=== PATIENT | female | born 1985 | race Caucasian/White ===

== ENCOUNTER 2016-08-09 11:17 | Emergency (ER) | payer OTHER ==
[~2016-08-09 11:17] MED LIST: BACT800T5 PO; CEPH-460 PO
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
[2016-08-09 11:43] VITALS: BP 145/92; PULSE 82; RESP 20; TEMP 97.9; O2SAT 99
== END 2016-08-09 12:09 | disposition home or self-care (01) ==
LOC: NEPD 11:17
DX: Z02.89 Encounter for other administrative examinations (principal)
CPT/HCPCS: 99281

== ENCOUNTER 2016-12-09 03:18 | Inpatient (IN) | payer SELFPAY ==
[~2016-12-09] VITALS: Ht 170.2 cm; Wt 99.8 kg
[2016-12-09] VITALS (7 sets, daily range): BP systolic 93–125; BP diastolic 55–63; PULSE 87–96; RESP 16–18; TEMP 96.4–99.1; O2SAT 95–99
[2016-12-09] MEDS ORDERED: SODIUM CHLOR 0.9% 1000 ML INJ 1,000 ML IV ONE (04:26)
[2016-12-09] MEDS ORDERED: VANCOMYCIN INJ 1,000 MG in SODIUM CHLOR 0.9% 250 ML INJ 250 ML IV STA (04:26)
[2016-12-09] MEDS ORDERED: PIPERACIL-TAZO 4.5 GM PREMIX 100 ML IV STA (04:26)
--- NOTE | 2016-12-09 04:35 | PD ---
HPI Chief Complaint: Skin Problem Time Seen by Provider: 04:26 Travel History International Travel<30 days: No Contact w/Intl Traveler<30days: No Traveled to known affect area: No History of Present Illness HPI 31-year-old female patient presents to the ER today, states that her dog had gotten into a fight with her neighbors dog and she was been a few days ago in the left fifth digit, and since then has started having increased left hand swelling, streaking, pain, and states that she has been running subjective fevers. She is here for further evaluation. She states that the dog from her neighbor was vaccinated. She denies any IV drug use. Modifying Factors: None Associated Signs & Symptoms: Left hand injury, dog bite, swelling, redness, fevers Risk Factors: None PFSH Past Medical History ADHD: Yes Bipolar Disorder: Yes Anxiety: Yes Cancer: No Cardiovascular Problems: Yes Chest Pain: Yes (PALPITATIONS) Diminished Hearing: No Endocrine: Yes Gastrointestinal Disorders: Yes GERD: Yes Genitourinary: No Headaches: Yes Immune Disorder: No Implanted Vascular Access Dvce: Yes Neurologic: Yes Psychiatric: Yes Reproductive: No Respiratory: No Integumentary: Yes (WOUND MRSA ) Immunizations Current: Yes Migraines: Yes Thyroid Disease: Yes (DURING ) Menopausal: No : 1 Para: 0 : 1 Dilation and Curettage (D&C): Yes Past Surgical History Body Medical Devices: IUD Other Surgery: Yes (LAC REPAIR TO R FOOT ) Social History Alcohol Use: Yes Tobacco Use: Yes Allergies-Medications (Allergen,Severity, Reaction): Coded Allergies: latex (Unverified Allergy, Severe, Swelling, 12/09/16) adhesive (Unverified Allergy, Mild, RASH, 12/09/16) *MDRO Multi-Drug Resistant Organism (Verified Adverse Reaction, Unknown, 12/09/16) 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 Reported Meds & Prescriptions Reported Meds & Active Scripts Active Keflex (Cephalexin) 500 Mg Cap 500 Mg PO Q12H 7 Days Bactrim DS (Sulfamethoxazole-Trimethoprim) 800-160 Mg Tab 1 Tab PO BID 7 Days Review of Systems Except as stated in HPI: all other systems reviewed are Neg Physical Exam Narrative GENERAL: Well-developed young white female patient currently in mild distress. Awake and oriented 3. SKIN: Focused skin assessment warm/dry. HEAD: Atraumatic. Normocephalic. EYES: Pupils equal and round. No scleral icterus. No injection or drainage. ENT: No nasal bleeding or discharge. Mucous membranes pink and moist. NECK: Trachea midline. No JVD. CARDIOVASCULAR: Regular rate and rhythm. No murmur appreciated. RESPIRATORY: No accessory muscle use. Clear to auscultation. Breath sounds equal bilaterally. GASTROINTESTINAL: Abdomen soft, non-tender, nondistended. Hepatic and splenic margins not palpable. MUSCULOSKELETAL: No obvious deformities. No clubbing. No cyanosis. No edema. Left hand: There is notable small puncture wound to the MCP of the fifth digit. However, there is no significant erythema in this area. She has a lot of erythema in the dorsum and second through fourth digits with tenderness on palpation of the digits. Painful flexion and extension of the digits. Streaking of the forearm. NEUROLOGICAL: Awake and alert. No obvious cranial nerve deficits. Motor grossly within normal limits. Normal speech. PSYCHIATRIC: Appropriate mood and affect; insight and judgment normal. Data Data Last Documented VS Vital Signs Date Time Temp Pulse Resp B/P (MAP) Pulse Ox O2 Delivery O2 Flow Rate FiO2 12/09/16 04:34 99.1 94 18 125/63 (83) 95 Room Air Orders Orders Complete Blood Count With Diff (12/09/16 04:26) Comprehensive Metabolic Panel (12/09/16 04:26) Lactic Acid Sepsis Protocol (12/09/16 04:26) Blood Culture (12/09/16 04:26) Blood Glucose (12/09/16 04:26) Ecg Monitoring (12/09/16 04:26) Iv Access Insert/Monitor (12/09/16 04:26) Oximetry (12/09/16 04:26) Oxygen Administration (12/09/16 04:26) Piperacil-Tazo 4.5 Gm Premix (Zosyn 4.5 (12/09/16 04:26) Vancomycin Inj (Vancomycin Inj) (12/09/16 04:26) Sodium Chlor 0.9% 1000 Ml Inj (Ns 1000 M (12/09/16 04:26) Admit Order (Ed Use Only) (12/09/16 05:56) Labs Laboratory Tests Test 12/09/16 04:50 White Blood Count 19.8 TH/MM3 Red Blood Count 3.52 MIL/MM3 Hemoglobin 11.2 GM/DL Hematocrit 32.9 % Mean Corpuscular Volume 93.5 FL Mean Corpuscular Hemoglobin 31.8 PG Mean Corpuscular Hemoglobin Concent 34.0 % Red Cell Distribution Width 12.8 % Platelet Count 232 TH/MM3 Mean Platelet Volume 7.9 FL Neutrophils (%) (Auto) 78.6 % Lymphocytes (%) (Auto) 12.8 % Monocytes (%) (Auto) 8.1 % Eosinophils (%) (Auto) 0.2 % Basophils (%) (Auto) 0.3 % Neutrophils # (Auto) 15.6 TH/MM3 Lymphocytes # (Auto) 2.5 TH/MM3 Monocytes # (Auto) 1.6 TH/MM3 Eosinophils # (Auto) 0.0 TH/MM3 Basophils # (Auto) 0.1 TH/MM3 CBC Comment DIFF FINAL Differential Comment Blood Urea Nitrogen 7 MG/DL Creatinine 0.71 MG/DL Random Glucose 136 MG/DL Total Protein 6.9 GM/DL Albumin 3.4 GM/DL Calcium Level 8.6 MG/DL Alkaline Phosphatase 70 U/L Aspartate Amino Transf (AST/SGOT) 22 U/L Alanine Aminotransferase (ALT/SGPT) 25 U/L Total Bilirubin 0.9 MG/DL Sodium Level 133 MEQ/L Potassium Level 3.3 MEQ/L Chloride Level 99 MEQ/L Carbon Dioxide Level 26.0 MEQ/L Anion Gap 8 MEQ/L Estimat Glomerular Filtration Rate 97 ML/MIN Lactic Acid Level 1.8 mmol/L MDM Medical Decision Making Medical Screen Exam Complete: Yes Emergency Medical Condition: Yes Medical Record Reviewed: Yes Interpretation(s) Laboratory Tests Test 12/09/16 04:50 White Blood Count 19.8 TH/MM3 (4.0-11.0) Red Blood Count 3.52 MIL/MM3 (4.00-5.30) Hemoglobin 11.2 GM/DL (11.6-15.3) Hematocrit 32.9 % (35.0-46.0) Neutrophils (%) (Auto) 78.6 % (16.0-70.0) Monocytes (%) (Auto) 8.1 % (0.0-8.0) Neutrophils # (Auto) 15.6 TH/MM3 (1.8-7.7) Monocytes # (Auto) 1.6 TH/MM3 (0-0.9) Random Glucose 136 MG/DL (74-106) Sodium Level 133 MEQ/L (136-145) Potassium Level 3.3 MEQ/L (3.5-5.1) Differential Diagnosis Tenosynovitis versus cellulitis versus abscess versus sepsis Narrative Course Sepsis protocol initiated with IV fluids, antibiotics initiated IV after cultures were drawn. Case is discussed with Dr. Rivas for admission. Hand surgery was consulted on the case. Several attempts were made to call Dr. Montoya but we were not able to get contacts. Consult was placed for the chart. Diagnosis Primary Impression: Cellulitis of left hand Admitting Information Admitting Physician Requests: Admit Marcelina Rios MD Dec 09, 2016 04:35
[2016-12-09 05:16] LABS: AUTOMATED NEUTROPHIL # 15.6 TH/MM3 (1.8-7.7); BASOPHIL # 0.1 TH/MM3 (0-0.2); BASOPHIL % 0.3 % (0.0-2.0); EOSINOPHIL % 0.2 % (0.0-4.0); HEMATOCRIT 32.9 % (35.0-46.0); HEMO FLAGS DIFF FINAL; LYMPH % 12.8 % (9.0-44.0); LYMPHOCYTE # 2.5 TH/MM3 (1.0-4.8); MEAN CELL VOLUME 93.5 FL (80.0-100.0); MEAN CORPUSCULAR HEMOGLOBIN 31.8 PG (27.0-34.0); MONO % 8.1 % (0.0-8.0); NEUT % 78.6 % (16.0-70.0); PLATELET COUNT 232 TH/MM3 (150-450); RED BLOOD COUNT 3.52 MIL/MM3 (4.00-5.30); RED CELL DISTRIBUTION WIDTH 12.8 % (11.6-17.2); WHITE BLOOD COUNT 19.8 TH/MM3 (4.0-11.0)
[2016-12-09 05:17] LABS: ANION GAP 8 MEQ/L (5-15); AST (GOT) 22 U/L (15-37); BLOOD UREA NITROGEN 7 MG/DL (7-18); CHLORIDE 99 MEQ/L (98-107); GLOMERULAR FILTRATION RATE 97 ML/MIN (>89); POTASSIUM 3.3 MEQ/L (3.5-5.1); SODIUM (NA) 133 MEQ/L (136-145)
[2016-12-09 05:18] LABS: ALT (GPT) 25 U/L (10-53)
[2016-12-09 05:20] LABS: ALKALINE PHOSPHATASE 70 U/L (45-117); TOTAL BILIRUBIN ADULT 0.9 MG/DL (0.2-1.0)
[2016-12-09] MEDS ORDERED: BISACODYL 10 MG SUPP RECTAL PRN (06:00)
[2016-12-09] MEDS ORDERED: ACETAMINOPHEN 325 MG TAB PO PRN (06:00)
[2016-12-09] MEDS ORDERED: MAGNESIUM HYDROXIDE SUSP 30 ML CUP PO PRN (06:00)
[2016-12-09] MEDS ORDERED: Vancomycin Consult Pharmacy 1 EA OTHER SCH ×2 (06:00→09:00)
[2016-12-09] MEDS ORDERED: ONDANSETRON HCL 4 MG/2 ML VIAL IVP PRN (06:00)
[2016-12-09] MEDS ORDERED: SENNOSIDES 8.6 MG TAB PO PRN (06:00)
[2016-12-09] MEDS ORDERED: SODIUM CHLORIDE 0.9% FLUSH 10 ML FLUSH IV FLUSH PRN (06:00)
[2016-12-09] MEDS ORDERED: LACTULOSE SYRUP 20 GM/30 ML CUP PO PRN (06:00)
[2016-12-09] MEDS: SODIUM CHLOR 0.9% 1000 ML INJ 1,000 ML IV SCH ×3 (06:32→16:55)
--- NOTE | 2016-12-09 08:26 | HHI.HP ---
HPI Service [facility] Primary Care Physician No Primary Care Physician Admission Diagnosis left hand cellulitis/sepsis Diagnoses: Chief Complaint: Left Hand edema and pain Travel History International Travel<30 Days: No Contact w/Intl Traveler <30 Da: No Traveled to Known Affected Are: No History of Present Illness 31-year-old female patient presents to the ER today, states that her dog had gotten into a fight with her neighbors dog and she was been a few days ago in the left fifth digit, and since then has started having increased left hand swelling, streaking, pain, and states that she has been running subjective fevers. She is here for further evaluation. She states that the dog from her neighbor was vaccinated. She denies any IV drug use. Seen in ER stable sleeping comfortable. Poor historian. Review of Systems Constitutional: DENIES: Fever, Chills, Change in appetite Endocrine: DENIES: Heat/cold intolerance Eyes: DENIES: Blurred vision, Eye pain Except as stated in HPI: all other systems reviewed are Neg Past Family Social History Past Medical History ADHD Bipolar Disorder Anxiety disorder GERD MRSA history of Past Surgical History Denies any past Surgical History Reported Medications Reported Meds & Active Scripts Active Keflex (Cephalexin) 500 Mg Cap 500 Mg PO Q12H 7 Days Bactrim DS (Sulfamethoxazole-Trimethoprim) 800-160 Mg Tab 1 Tab PO BID 7 Days Allergies: Coded Allergies: latex (Unverified Allergy, Severe, Swelling, 12/09/16) adhesive (Unverified Allergy, Mild, RASH, 12/09/16) *MDRO Multi-Drug Resistant Organism (Verified Adverse Reaction, Unknown, 12/09/16) 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 Active Ordered Medications Current Medications Medications (Trade) Dose Ordered Sig/Isak Route Start Time Stop Time Status Last Admin Pharmacy Profile Note 0 ml @ 0 mls/hr UNSCH OTHER 12/09/16 06:00 Ampicillin Sodium/ Sulbactam Sodium 3 gm/Sodium Chloride 100 ml @ 200 mls/hr Q6H IV 12/09/16 10:00 Sodium Chloride 1,000 ml @ 100 mls/hr Q10H IV 12/09/16 06:00 12/09/16 06:32 (NS Flush) 2 ml UNSCH PRN IV FLUSH 12/09/16 06:00 (NS Flush) 2 ml BID IV FLUSH 12/09/16 09:00 (Zofran Inj) 4 mg Q6H PRN IVP 12/09/16 06:00 (Tylenol) 650 mg Q6H PRN PO 12/09/16 06:00 (Roxicodone) 10 mg Q4H PRN PO 12/09/16 06:00 12/09/16 06:33 (Roxicodone) 5 mg Q4H PRN PO 12/09/16 06:00 (Emelina-Colace) 1 tab BID PO 12/09/16 09:00 (Milk Of Magnesia Liq) 30 ml Q12H PRN PO 12/09/16 06:00 (Senokot) 17.2 mg Q12H PRN PO 12/09/16 06:00 (Dulcolax Supp) 10 mg DAILY PRN RECTAL 12/09/16 06:00 (Lactulose Liq) 30 ml DAILY PRN PO 12/09/16 06:00 Family History Denies Social History Tobacco dependence Alcohol abuse Physical Exam Vital Signs Vital Signs Date Time Temp Pulse Resp B/P (MAP) Pulse Ox O2 Delivery O2 Flow Rate FiO2 12/09/16 06:41 87 18 111/56 (74) 99 Room Air 12/09/16 04:34 99.1 94 18 125/63 (83) 95 Room Air 12/09/16 04:34 95 Room Air 12/09/16 04:34 95 Room Air Physical Exam GENERAL: Well-developed, in no acute distress. SKIN: Focused skin assessment warm/dry. HEAD: Atraumatic. Normocephalic. EYES: Pupils equal and round. No scleral icterus. No injection or drainage. ENT: No nasal bleeding or discharge. Mucous membranes pink and moist. NECK: Trachea midline. No JVD. CARDIOVASCULAR: Regular rate and rhythm. No murmur appreciated. RESPIRATORY: No accessory muscle use. Clear to auscultation. Breath sounds equal bilaterally. GASTROINTESTINAL: Abdomen soft, non-tender, nondistended. Hepatic and splenic margins not palpable. MUSCULOSKELETAL: Left hand: There is notable small puncture wound to the MCP of the fifth digit. However, there is no significant erythema in this area. She has a lot of erythema in the dorsum and second through fourth digits with tenderness on palpation of the digits. Painful flexion and extension of the digits. Streaking of the forearm. NEUROLOGICAL: Awake and alert. No obvious cranial nerve deficits. Motor grossly within normal limits. Normal speech. PSYCHIATRIC: Appropriate mood and affect; insight and judgment normal. Laboratory Laboratory Tests Test 12/09/16 04:50 White Blood Count 19.8 Red Blood Count 3.52 Hemoglobin 11.2 Hematocrit 32.9 Mean Corpuscular Volume 93.5 Mean Corpuscular Hemoglobin 31.8 Mean Corpuscular Hemoglobin Concent 34.0 Red Cell Distribution Width 12.8 Platelet Count 232 Mean Platelet Volume 7.9 Neutrophils (%) (Auto) 78.6 Lymphocytes (%) (Auto) 12.8 Monocytes (%) (Auto) 8.1 Eosinophils (%) (Auto) 0.2 Basophils (%) (Auto) 0.3 Neutrophils # (Auto) 15.6 Lymphocytes # (Auto) 2.5 Monocytes # (Auto) 1.6 Eosinophils # (Auto) 0.0 Basophils # (Auto) 0.1 CBC Comment DIFF FINAL Differential Comment Blood Urea Nitrogen 7 Creatinine 0.71 Random Glucose 136 Total Protein 6.9 Albumin 3.4 Calcium Level 8.6 Alkaline Phosphatase 70 Aspartate Amino Transf (AST/SGOT) 22 Alanine Aminotransferase (ALT/SGPT) 25 Total Bilirubin 0.9 Sodium Level 133 Potassium Level 3.3 Chloride Level 99 Carbon Dioxide Level 26.0 Anion Gap 8 Estimat Glomerular Filtration Rate 97 Lactic Acid Level 1.8 Date/Time Source Procedure Growth Status 12/09/16 04:50 Blood Peripheral Aerobic Blood Culture Pending Received 12/09/16 04:50 Blood Peripheral Anaerobic Blood Culture Pending Received Result Diagram: 12/09/16 0450 12/09/16 0450 Imaging No Imaging studies performed. Caprini VTE Risk Assessment Caprini VTE Risk Assessment: No/Low Risk (score <= 1) Caprini Risk Assessment Model Point Value = 1 Point Value = 2 Point Value = 3 Point Value = 5 Age 41-60 Minor surgery BMI > 25 kg/m2 Swollen legs Varicose veins or History of unexplained or recurrent spontaneous Oral contraceptives or hormone replacement Sepsis (< 1 month) Serious lung disease, including pneumonia (< 1 month) Abnormal pulmonary function Acute myocardial infarction Congestive heart failure (< 1 month) History of inflammatory bowel disease Medical patient at bed rest Age 61-74 Arthroscopic surgery Major open surgery (> 45 min) Laparoscopic surgery (> 45 min) Malignancy Confined to bed (> 72 hours) Immobilizing plaster cast Central venous access Age >= 75 History of VTE Family history of VTE Factor V Leiden Prothrombin [id number] Lupus anticoagulant Anticardiolipin antibodies Elevated serum homocysteine Heparin-induced thrombocytopenia Other congenital or acquired thrombophilia Stroke (< 1 month) Elective arthroplasty Hip, pelvis, or leg fracture Acute spinal cord injury (< 1 month) Prophylaxis Regimen Total Risk Factor Score Risk Level Prophylaxis Regimen 0-1 Low Early ambulation 2 Moderate Order ONE of the following: *Sequential Compression Device (SCD) *Heparin 5000 units SQ BID 3-4 Higher Order ONE of the following medications: *Heparin 5000 units SQ TID *Enoxaparin/Lovenox 40 mg SQ daily (WT < 150 kg, CrCl > 30 mL/min) *Enoxaparin/Lovenox 30 mg SQ daily (WT < 150 kg, CrCl > 10-29 mL/min) *Enoxaparin/Lovenox 30 mg SQ BID (WT < 150 kg, CrCl > 30 mL/min) AND/OR *Sequential Compression Device (SCD) 5 or more Highest Order ONE of the following medications: *Heparin 5000 units SQ TID (Preferred with Epidurals) *Enoxaparin/Lovenox 40 mg SQ daily (WT < 150 kg, CrCl > 30 mL/min) *Enoxaparin/Lovenox 30 mg SQ daily (WT < 150 kg, CrCl > 10-29 mL/min) *Enoxaparin/Lovenox 30 mg SQ BID (WT < 150 kg, CrCl > 30 mL/min) AND *Sequential Compression Device (SCD) Assessment and Plan Assessment and Plan 1. Sepsis the patient has Tachycardia and Leukocytosis and known area of infection has Left Hand Cellulitis Probable secondary to Dog bite, she denies Drug abuse, asked for Drug screen and follow, continue initially given in ER Vancomycin and Zosyn even is possible to treat the patient with Ampicillin and Sulbactam she has history of MRSA I prefer to continue Vancomycin and Zosyn and follow closely for blood cultures and Probable Wound cultures after procedure performed. She may have an abscess on the Left Hand. elevation of the hand recommended. The patient states she is up to date in her Vaccination last time was last year. 2. Tobacco dependence states she smokes only three cigarettes daily, denies Alcohol abuse. strongly recommended to stop smoking 3. Depression/Bipolar Disorder/Anxiety disorder on no medication. DVT prophylaxis with SCDs for probable procedure later today or in am tomorrow. Code Status Full Code. Discussed Condition With Patient in the room. Physician Certification 2 Midnight Certification Type: Admission for Inpatient Services Order for Inpatient Services The services are ordered in accordance with Medicare regulations or non- Medicare payer requirements, as applicable. In the case of services not specified as inpatient-only, they are appropriately provided as inpatient services in accordance with the 2-midnight benchmark. Estimated LOS (days): 3 days is the estimated time the patient will need to remain in the hospital, assuming treatment plan goals are met and no additional complications. Post-Hospital Plan: Home Lito Levi MD Dec 09, 2016 8:26 am
[2016-12-09] MEDS: SODIUM CHLORIDE 0.9% FLUSH 10 ML FLUSH IV FLUSH SCH ×2 (09:00→21:00)
[2016-12-09] MEDS: DOCUSATE SODIUM 50 MG/SENNA 8.6 MG TAB PO SCH ×2 (09:00→21:00)
[2016-12-09] MEDS ORDERED: AMPICILLIN-SULBACTAM INJ 3 GM in SODIUM CHLORIDE 0.9% INJ 100 ML IV SCH (10:00)
[2016-12-09] MEDS: PIPERACIL-TAZO 3.375 GM PREMIX 50 ML IV SCH ×3 (11:08→23:04)
--- NOTE | 2016-12-09 14:55 | MB ---
cc: PAUL NY III, M.D. DATE OF CONSULTATION: 12/09/2016. HISTORY OF PRESENT ILLNESS: The patient is a 31-year-old right hand-dominant female who states she was bitten by a small dog four or five days ago in the left fifth finger. She started having increased redness, pain, swelling in the fingers and hands and then was admitted. She states the dog that did bite her was vaccinated. She denies using any IV drugs for the last four or five years. PAST MEDICAL HISTORY: 1. Bipolar disorder. 2. ADHD. PAST SURGICAL HISTORY: Laceration to her foot was repaired. MEDICATIONS AT HOME: Adderall. ALLERGIES: 1. LATEX. 2. ADHESIVES. MEDICATIONS HERE IN THE HOSPITAL: 1. Vancomycin. 2. Zosyn. 3. Oxycodone. REVIEW OF SYSTEMS: The patient is not complaining of any headache, blurred or double vision. She is not complaining of any coughing, wheezing or shortness of breath. She is not complaining of any chest pain or palpitations. She is not complaining of any nausea or vomiting or abdominal pain. She is not complaining of any burning, frequency or urgency with urination. She is not complaining of any spine, neck or back pain. She is not complaining of any skin lesions, rashes or eruptions except for some old bruises on her legs. She states they have been there for at least a year and have left scars. She is not complaining of any anxiety, depression or suicidal ideations. She is not complaining of any night sweats, fevers or chills. FAMILY HISTORY: Not pertinent or contributory. LABORATORY FINDINGS: White blood cell count of 19.8 thousand, hemoglobin 11.2 gm/dl, platelet count is 232,000. BUN and creatinine are 7 and 0.71. PHYSICAL EXAMINATION: GENERAL: She is well-developed, well-nourished and in no apparent distress lying comfortably in bed. She is awake, alert and oriented x3. She is very pleasant. She moves around normally but she is guarding her left hand. VITAL SIGNS: Temperature is 96.4, blood pressure 115/59, heart rate 93, respiratory rate is 16. EXAMINATION OF THE LEFT HAND: Examination of the left hand reveals erythema on the dorsal aspect of the hand and fourth and fifth fingers. All musculotendinous units are intact and she easily moves all fingers and all the joints in her fingers and hand without undue discomfort. Capillary refill is less 2 seconds in all fingertips. There are no open wounds. There are no fluid collections. There is no fluctuance. There is no proximal streaking. There is very mild edema. There is no induration. The hand is tender to palpation in the areas of the erythema. Palpable radial pulse. No palpable epitrochlear adenopathy. There is no evidence of compartment syndrome at all. There is no subcutaneous emphysema. IMPRESSION: Dog bite left hand with cellulitis. PLAN: 1. Continued IV antibiotics. 2. I have ordered IV pole sling and strict elevation of the left hand. 3. There is nothing surgical needed to address this at this time. 4. Hopefully this will resolve nonsurgically. I will follow the patient with you. MD CHANTEL Madrid III/[facility] /2:14 PM /2:40 PM
[2016-12-09] MEDS: VANCOMYCIN INJ 1,250 MG in SODIUM CHLOR 0.9% 250 ML INJ 250 ML IV SCH (17:07)
[2016-12-10] VITALS (7 sets, daily range): BP systolic 100–120; BP diastolic 55–72; PULSE 71–87; RESP 16–20; TEMP 97.4–98.3; O2SAT 96–99
[2016-12-10] MEDS: SODIUM CHLOR 0.9% 1000 ML INJ 1,000 ML IV SCH ×3 (02:54→22:54)
[2016-12-10] MEDS: PIPERACIL-TAZO 3.375 GM PREMIX 50 ML IV SCH ×4 (04:56→22:54)
[2016-12-10] MEDS: VANCOMYCIN INJ 1,250 MG in SODIUM CHLOR 0.9% 250 ML INJ 250 ML IV SCH ×2 (04:56→17:55)
--- NOTE | 2016-12-10 08:06 | HHI.PR ---
Subjective Remarks 31-year-old female patient presents to the ER today, states that her dog had gotten into a fight with her neighbors dog and she was been a few days ago in the left fifth digit, and since then has started having increased left hand swelling, streaking, pain, and states that she has been running subjective fevers. She is here for further evaluation. She states that the dog from her neighbor was vaccinated. She denies any IV drug use. 12/10: Seen by Hand surgery recommended to continue her antibiotics, also not recommended any procedure the patient states her antibiotics are not working and refused to get them this morning, also asked for PICC line IR was consulted to evaluate her Right Jugular peripheral line, will get ID specialist consult. recommended to get Urine for Drug screen and also as per nurse recommendations wants STD evaluation. No nausea, vomit or diarrhea. Objective Vital Signs Date Time Temp Pulse Resp B/P (MAP) Pulse Ox O2 Delivery O2 Flow Rate FiO2 12/10/16 04:00 97.4 86 17 100/57 (71) 99 12/10/16 00:00 97.4 81 17 120/62 (81) 98 12/09/16 20:00 98.0 96 17 109/55 (73) 98 12/09/16 19:59 96 12/09/16 16:00 96.8 92 16 93/55 (68) 98 12/09/16 12:00 96.4 93 16 115/59 (77) 98 12/09/16 09:00 I/O 12/09/16 12/09/16 12/09/16 12/10/16 12/10/16 12/10/16 07:00 15:00 23:00 07:00 15:00 23:00 Intake Total 2700 ml 50 ml 2050 ml 1290 ml Balance 2700 ml 50 ml 2050 ml 1290 ml Intake Oral 1000 ml 240 ml IV Total 2700 ml 50 ml 1050 ml 1050 ml # Voids 2 2 # Bowel Movements 0 Result Diagram: 12/09/16 0450 12/09/16 0450 Imaging No new Imaging studies. Procedures None Other Results Laboratory Tests Test 12/09/16 04:50 White Blood Count 19.8 TH/MM3 Red Blood Count 3.52 MIL/MM3 Hemoglobin 11.2 GM/DL Hematocrit 32.9 % Mean Corpuscular Volume 93.5 FL Mean Corpuscular Hemoglobin 31.8 PG Mean Corpuscular Hemoglobin Concent 34.0 % Red Cell Distribution Width 12.8 % Platelet Count 232 TH/MM3 Mean Platelet Volume 7.9 FL Neutrophils (%) (Auto) 78.6 % Lymphocytes (%) (Auto) 12.8 % Monocytes (%) (Auto) 8.1 % Eosinophils (%) (Auto) 0.2 % Basophils (%) (Auto) 0.3 % Neutrophils # (Auto) 15.6 TH/MM3 Lymphocytes # (Auto) 2.5 TH/MM3 Monocytes # (Auto) 1.6 TH/MM3 Eosinophils # (Auto) 0.0 TH/MM3 Basophils # (Auto) 0.1 TH/MM3 CBC Comment DIFF FINAL Differential Comment Blood Urea Nitrogen 7 MG/DL Creatinine 0.71 MG/DL Random Glucose 136 MG/DL Total Protein 6.9 GM/DL Albumin 3.4 GM/DL Calcium Level 8.6 MG/DL Alkaline Phosphatase 70 U/L Aspartate Amino Transf (AST/SGOT) 22 U/L Alanine Aminotransferase (ALT/SGPT) 25 U/L Total Bilirubin 0.9 MG/DL Sodium Level 133 MEQ/L Potassium Level 3.3 MEQ/L Chloride Level 99 MEQ/L Carbon Dioxide Level 26.0 MEQ/L Anion Gap 8 MEQ/L Estimat Glomerular Filtration Rate 97 ML/MIN Lactic Acid Level 1.8 mmol/L Objective Remarks GENERAL: Well-developed, in no acute distress. SKIN: Focused skin assessment warm/dry. HEAD: Atraumatic. Normocephalic. EYES: Pupils equal and round. No scleral icterus. No injection or drainage. ENT: No nasal bleeding or discharge. Mucous membranes pink and moist. NECK: Trachea midline. No JVD. CARDIOVASCULAR: Regular rate and rhythm. No murmur appreciated. RESPIRATORY: No accessory muscle use. Clear to auscultation. Breath sounds equal bilaterally. GASTROINTESTINAL: Abdomen soft, non-tender, nondistended. Hepatic and splenic margins not palpable. MUSCULOSKELETAL: Left hand: There is notable small puncture wound to the MCP of the fifth digit. However, there is no significant erythema in this area. She has a lot of erythema in the dorsum and second through fourth digits with tenderness on palpation of the digits. Painful flexion and extension of the digits. Streaking of the forearm. NEUROLOGICAL: Awake and alert. No obvious cranial nerve deficits. Motor grossly within normal limits. Normal speech. PSYCHIATRIC: Appropriate mood and affect; insight and judgment normal. Medications and IVs Current Medications Medications (Trade) Dose Ordered Sig/Isak Route Start Time Stop Time Status Last Admin Sodium Chloride 1,000 ml @ 150 mls/hr Q6H40M IV 12/09/16 06:00 12/09/16 16:55 (NS Flush) 2 ml UNSCH PRN IV FLUSH 12/09/16 06:00 (NS Flush) 2 ml BID IV FLUSH 12/09/16 09:00 (Zofran Inj) 4 mg Q6H PRN IVP 12/09/16 06:00 (Tylenol) 650 mg Q6H PRN PO 12/09/16 06:00 (Roxicodone) 10 mg Q4H PRN PO 12/09/16 06:00 12/09/16 20:48 (Roxicodone) 5 mg Q4H PRN PO 12/09/16 06:00 (Emelina-Colace) 1 tab BID PO 12/09/16 09:00 (Milk Of Magnesia Liq) 30 ml Q12H PRN PO 12/09/16 06:00 (Senokot) 17.2 mg Q12H PRN PO 12/09/16 06:00 (Dulcolax Supp) 10 mg DAILY PRN RECTAL 12/09/16 06:00 (Lactulose Liq) 30 ml DAILY PRN PO 12/09/16 06:00 Piperacillin Sod/ Tazobactam Sod 50 ml @ 100 mls/hr Q6H IV 12/09/16 11:00 12/09/16 23:04 Pharmacy Profile Note 0 ml @ 0 mls/hr UNSCH OTHER 12/09/16 09:00 Vancomycin HCl 1250 mg/Sodium Chloride 262.5 ml @ 250 mls/hr Q12H IV 12/09/16 17:00 12/09/16 17:07 Miscellaneous Information SPECIFIC LAB TO BE DRAWN:VANCO TROUGH DATE TO... ONCE ONCE .XX 12/10/16 16:45 12/10/16 16:46 A/P Assessment and Plan 1. Sepsis the patient has Tachycardia and Leukocytosis and known area of infection has Left Hand Cellulitis Probable secondary to Dog bite, she denies Drug abuse, asked for Drug screen and follow, continue initially given in ER Vancomycin and Zosyn even is possible to treat the patient with Ampicillin and Sulbactam she has history of MRSA I prefer to continue Vancomycin and Zosyn and follow closely for blood cultures and Probable Wound cultures after procedure performed. She may have an abscess on the Left Hand. elevation of the hand recommended. as per Hand oral surgery assistant continue antibiotics, and no surgical procedure now. The patient states she is up to date in her Vaccination last time was last year. 2. Tobacco dependence states she smokes only three cigarettes daily, denies Alcohol abuse. strongly recommended to stop smoking 3. Depression/Bipolar Disorder/Anxiety disorder on no medication. DVT prophylaxis with Heparin Code Status Full Code. Discussed Condition With patient and nurse in the room present Miss Moon, all questions answered to the best of my abilities. consult ID specialist. Discharge Planning Once cleared by specialists. Lito Levi MD Dec 10, 2016 08:06
[2016-12-10] MEDS: DOCUSATE SODIUM 50 MG/SENNA 8.6 MG TAB PO SCH ×2 (09:00→20:53)
[2016-12-10] MEDS: SODIUM CHLORIDE 0.9% FLUSH 10 ML FLUSH IV FLUSH SCH ×2 (11:17→20:53)
--- NOTE | 2016-12-10 13:19 | HHI.PR ---
Subjective Remarks The patient has her left hand down and not elevated She states she can feel the IV infusing into her neck and not into the vein Objective Vital Signs Date Time Temp Pulse Resp B/P (MAP) Pulse Ox O2 Delivery O2 Flow Rate FiO2 12/10/16 12:00 97.9 83 16 111/55 (73) 99 12/10/16 08:00 98.3 78 18 110/64 (79) 96 12/10/16 04:00 97.4 86 17 100/57 (71) 99 12/10/16 00:00 97.4 81 17 120/62 (81) 98 12/09/16 20:00 98.0 96 17 109/55 (73) 98 12/09/16 19:59 96 12/09/16 16:00 96.8 92 16 93/55 (68) 98 I/O 12/09/16 12/09/16 12/09/16 12/10/16 12/10/16 12/10/16 07:00 15:00 23:00 07:00 15:00 23:00 Intake Total 2700 ml 50 ml 2050 ml 1290 ml Balance 2700 ml 50 ml 2050 ml 1290 ml Intake Oral 1000 ml 240 ml IV Total 2700 ml 50 ml 1050 ml 1050 ml # Voids 2 2 # Bowel Movements 0 Result Diagram: 12/09/1644912/09/16 0450 Procedures None Objective Remarks Examination left hand wrist and forearm reveals slightly decreased erythema. The hand is still swollen no induration no fluctuance no fluid collections neurovascularly intact throughout she has full active range of motion the hand performed in every other surface are soft She is awake alert and oriented 3 She is pleasant She's lying comfortably in bed Assessment and Plan Problem List: (1) Cellulitis ICD Codes: L03.90 - Cellulitis, unspecified Status: Acute Plan: I reset up and readjusted her IV pole sling and had a re-elevate her arm while I was in the room today I also went and ordered a PICC line placement for the right upper extremity and she needs the antibiotics and they are apparently on hold She and I discussed other treatments, at this time surgical treatment is not indicated Misha Leon III, MD Dec 10, 2016 13:19
[2016-12-10] MEDS: ENOXAPARIN SODIUM 40 MG/0.4 ML SYRINGE SQ SCH (14:33)
--- NOTE | 2016-12-10 16:34 | HHI.PR ---
Addendum to Inpatient Note Additional Information pt seen around 1500 full note to follow Valeria Sim RN, MD Dec 10, 2016 16:34
--- NOTE | 2016-12-10 23:15 | PD.ID.CON ---
History of Present Illness Service ID Consult Requested By Dr Leonard Reason for Consult L hand cellulitis Primary Care Physician No Primary Care Physician Diagnoses: History of Present Illness 31 yo R handed female, past IVDU - adamatly denies any ongoing IV drugs sp dog bit to her L small finger 1-2 weeks ago which healed and she did nt seek any med attention Dog's owned by her neihgbcuate and per pt is vaccinated and OK Pt developped progressive swelling and redness of her L hand over the last 4 days No fever, but significant leukocytsis (19K) noted She thinks her pain and swelling are getting worse She is also concerned over her periferal IV Review of Systems Except as stated in HPI: all other systems reviewed are Neg Past Family Social History Allergies: Coded Allergies: latex (Unverified Allergy, Severe, Swelling, 12/09/16) adhesive (Unverified Allergy, Mild, RASH, 12/09/16) Past Medical History ADHD Bipolar Disorder Anxiety disorder GERD MRSA skin infx Past Surgical History Denies any past surgeries Active Ordered Medications Medications where reviewed in EMR Antibiotics Include: bibi smart Family History reviewed non contributory Social History + Tobacco. social ETOH. past IVDU 5 yrs ago Physical Exam Vital Signs Vital Signs Date Time Temp Pulse Resp B/P (MAP) Pulse Ox O2 Delivery O2 Flow Rate FiO2 12/10/16 22:30 20 12/10/16 20:00 97.8 80 20 115/56 (75) 98 12/10/16 16:00 98.0 71 16 111/72 (85) 98 12/10/16 12:00 97.9 83 16 111/55 (73) 99 12/10/16 08:00 98.3 78 18 110/64 (79) 96 12/10/16 04:00 97.4 86 17 100/57 (71) 99 12/10/16 00:00 97.4 81 17 120/62 (81) 98 Physical Exam CONSTITUTIONAL/GENERAL: This is an adequately nourished patient, in no apparent distress. TUBES/LINES/DRAINS: SKIN: No jaundice, rashes, or lesions. Skin temperature appropriate. Not diaphoretic. no needle tracks HEAD: Atraumatic. Normocephalic. EYES: Pupils equal and round and reactive. Extraocular motions intact. No scleral icterus. No injection or drainage. Fundi not examined. ENT: Hearing grossly normal. Nose without bleeding or purulent drainage. Throat without visible erythema, exudates, masses, or lesions. NECK: Trachea midline. Supple, nontender. CARDIOVASCULAR: Regular rate and rhythm without murmurs, gallops, or rubs. No JVD. Peripheral pulses symmetric. RESPIRATORY/CHEST: Symmetric, unlabored respirations. Clear to auscultation. Breath sounds equal bilaterally. No wheezes, rales, or rhonchi. GASTROINTESTINAL: Abdomen soft, non-tender, nondistended. No hepato-splenomegaly , or palpable masses. No guarding. Bowel sounds present. MUSCULOSKELETAL: Extremities without clubbing, cyanosis, or edema BLE and RUE. No joint tenderness or effusion noted. No calf tenderness. No mottling or clubbing. L hand with edema , erythema spreading to the wrist No crepitus or fluctuance no ascending lymphaginitis or axillae lymphadenopathy LYMPHATICS: No palpable cervical or supraclavicular adenopathy. NEUROLOGICAL: Awake and alert. Motor and sensory grossly within normal limits. Follows commands. Cognitively sharp. Moves all extremities. PSYCHIATRIC: No obvious anxiety/depression. no apparent hallucinations or other psychotic thought process. Laboratory Laboratory Tests Test 12/10/16 15:00 Urine Opiates Screen NEG Urine Barbiturates Screen NEG Urine Amphetamines Screen POS Urine Benzodiazepines Screen NEG Urine Cocaine Screen NEG Urine Cannabinoids Screen NEG Date/Time Source Procedure Growth Status 12/09/16 04:50 Blood Peripheral Aerobic Blood Culture - Preliminary NO GROWTH IN 1 DAY Resulted 12/09/16 04:50 Blood Peripheral Anaerobic Blood Culture - Preliminary NO GROWTH IN 1 DAY Resulted Result Diagram: 12/09/16 0450 12/09/16449 Assessment and Plan Assessment and Plan L hand skin and soft tissue infection following a dog bite H/o IVDU denies current use cont broad spectrum abx (zosyn, vanco) fu clinically If no significant improveent by tomorow will get MRI to exclude abscess Valeria Bartlett MD Dec 10, 2016 23:15
[2016-12-11] VITALS (8 sets, daily range): BP systolic 101–118; BP diastolic 52–81; PULSE 66–88; RESP 16–20; TEMP 96.7–97.5; O2SAT 95–98
[2016-12-11] MEDS: PIPERACIL-TAZO 3.375 GM PREMIX 50 ML IV SCH ×4 (04:54→23:40)
[2016-12-11] MEDS: SODIUM CHLOR 0.9% 1000 ML INJ 1,000 ML IV SCH ×3 (05:37→13:22)
[2016-12-11] MEDS: VANCOMYCIN INJ 1,250 MG in SODIUM CHLOR 0.9% 250 ML INJ 250 ML IV SCH ×2 (05:37→15:52)
--- NOTE | 2016-12-11 08:27 | HHI.PR ---
Subjective Remarks 31-year-old female patient presents to the ER today, states that her dog had gotten into a fight with her neighbors dog and she was been a few days ago in the left fifth digit, and since then has started having increased left hand swelling, streaking, pain, and states that she has been running subjective fevers. She is here for further evaluation. She states that the dog from her neighbor was vaccinated. She denies any IV drug use. 12/10: Seen by Hand surgery recommended to continue her antibiotics, also not recommended any procedure the patient states her antibiotics are not working and refused to get them this morning, also asked for PICC line IR was consulted to evaluate her Right Jugular peripheral line, will get ID specialist consult. recommended to get Urine for Drug screen and also as per nurse recommendations wants STD evaluation. 12/11: Seen in her bedroom in the presence at all times while I was in the room of nurse Miss Moon, patient stable improving Erythema and edema, ID specialist assistance and Hand operating room specialist Assistance Highly appreciated. No nausea, vomit or diarrhea, better mood today. Objective Vital Signs Date Time Temp Pulse Resp B/P (MAP) Pulse Ox O2 Delivery O2 Flow Rate FiO2 12/11/16 08:00 97.0 74 18 102/62 (75) 98 12/11/16 05:54 17 12/11/16 04:00 96.7 74 18 102/57 (72) 97 12/11/16 00:00 96.8 66 18 104/58 (73) 97 12/10/16 21:00 87 12/10/16 20:00 97.8 80 20 115/56 (75) 98 12/10/16 16:00 98.0 71 16 111/72 (85) 98 12/10/16 12:00 97.9 83 16 111/55 (73) 99 I/O 12/10/16 12/10/16 12/10/16 12/11/16 12/11/16 12/11/16 07:00 15:00 23:00 07:00 15:00 23:00 Intake Total 1290 ml 50 ml 1732.5 ml 1842.5 ml Balance 1290 ml 50 ml 1732.5 ml 1842.5 ml Intake Oral 240 ml 420 ml 480 ml IV Total 1050 ml 50 ml 1312.5 ml 1362.5 ml # Voids 2 3 2 # Bowel Movements 0 0 Result Diagram: 12/09/16 0450 12/09/16 0450 Imaging No Imaging studies performed. Procedures None Other Results Laboratory Tests Test 12/09/16 04:50 12/10/16 15:00 White Blood Count 19.8 TH/MM3 Red Blood Count 3.52 MIL/MM3 Hemoglobin 11.2 GM/DL Hematocrit 32.9 % Mean Corpuscular Volume 93.5 FL Mean Corpuscular Hemoglobin 31.8 PG Mean Corpuscular Hemoglobin Concent 34.0 % Red Cell Distribution Width 12.8 % Platelet Count 232 TH/MM3 Mean Platelet Volume 7.9 FL Neutrophils (%) (Auto) 78.6 % Lymphocytes (%) (Auto) 12.8 % Monocytes (%) (Auto) 8.1 % Eosinophils (%) (Auto) 0.2 % Basophils (%) (Auto) 0.3 % Neutrophils # (Auto) 15.6 TH/MM3 Lymphocytes # (Auto) 2.5 TH/MM3 Monocytes # (Auto) 1.6 TH/MM3 Eosinophils # (Auto) 0.0 TH/MM3 Basophils # (Auto) 0.1 TH/MM3 CBC Comment DIFF FINAL Differential Comment Blood Urea Nitrogen 7 MG/DL Creatinine 0.71 MG/DL Random Glucose 136 MG/DL Total Protein 6.9 GM/DL Albumin 3.4 GM/DL Calcium Level 8.6 MG/DL Alkaline Phosphatase 70 U/L Aspartate Amino Transf (AST/SGOT) 22 U/L Alanine Aminotransferase (ALT/SGPT) 25 U/L Total Bilirubin 0.9 MG/DL Sodium Level 133 MEQ/L Potassium Level 3.3 MEQ/L Chloride Level 99 MEQ/L Carbon Dioxide Level 26.0 MEQ/L Anion Gap 8 MEQ/L Estimat Glomerular Filtration Rate 97 ML/MIN Lactic Acid Level 1.8 mmol/L Urine Opiates Screen NEG Urine Barbiturates Screen NEG Urine Amphetamines Screen POS Urine Benzodiazepines Screen NEG Urine Cocaine Screen NEG Urine Cannabinoids Screen NEG Objective Remarks GENERAL: Well-developed, in no acute distress. SKIN: Focused skin assessment warm/dry. HEAD: Atraumatic. Normocephalic. EYES: Pupils equal and round. No scleral icterus. No injection or drainage. ENT: No nasal bleeding or discharge. Mucous membranes pink and moist. NECK: Trachea midline. No JVD. CARDIOVASCULAR: Regular rate and rhythm. No murmur appreciated. RESPIRATORY: No accessory muscle use. Clear to auscultation. Breath sounds equal bilaterally. GASTROINTESTINAL: Abdomen soft, non-tender, nondistended. Hepatic and splenic margins not palpable. MUSCULOSKELETAL: Left hand: There is notable small puncture wound to the MCP of the fifth digit. However, there is no significant erythema in this area. She has a lot of erythema in the dorsum and second through fourth digits with tenderness on palpation of the digits. Painful flexion and extension of the digits. Streaking of the forearm. NEUROLOGICAL: Awake and alert. No obvious cranial nerve deficits. Motor grossly within normal limits. Normal speech. PSYCHIATRIC: Appropriate mood and affect; insight and judgment normal. Medications and IVs Current Medications Medications (Trade) Dose Ordered Sig/Isak Route Start Time Stop Time Status Last Admin Sodium Chloride 1,000 ml @ 150 mls/hr Q6H40M IV 12/09/16 06:00 12/11/16 05:37 (NS Flush) 2 ml UNSCH PRN IV FLUSH 12/09/16 06:00 (NS Flush) 2 ml BID IV FLUSH 12/09/16 09:00 12/10/16 11:17 (Zofran Inj) 4 mg Q6H PRN IVP 12/09/16 06:00 (Tylenol) 650 mg Q6H PRN PO 12/09/16 06:00 (Roxicodone) 10 mg Q4H PRN PO 12/09/16 06:00 12/11/16 04:54 (Roxicodone) 5 mg Q4H PRN PO 12/09/16 06:00 (Emelina-Colace) 1 tab BID PO 12/09/16 09:00 (Milk Of Magnesia Liq) 30 ml Q12H PRN PO 12/09/16 06:00 (Senokot) 17.2 mg Q12H PRN PO 12/09/16 06:00 (Dulcolax Supp) 10 mg DAILY PRN RECTAL 12/09/16 06:00 (Lactulose Liq) 30 ml DAILY PRN PO 12/09/16 06:00 Piperacillin Sod/ Tazobactam Sod 50 ml @ 100 mls/hr Q6H IV 12/09/16 11:00 12/11/16 04:54 Pharmacy Profile Note 0 ml @ 0 mls/hr UNSCH OTHER 12/09/16 09:00 Vancomycin HCl 1250 mg/Sodium Chloride 262.5 ml @ 250 mls/hr Q12H IV 12/09/16 17:00 12/11/16 05:37 Miscellaneous Information SPECIFIC LAB TO BE DRAWN:VANCO TROUGH DATE TO BE DRNoreen.. ONCE ONCE .XX 12/12/16 04:45 12/12/16 04:46 (Lovenox Inj) 40 mg Q24H SQ 12/10/16 11:00 12/10/16 14:33 A/P Assessment and Plan 1. Sepsis the patient has Tachycardia and Leukocytosis and known area of infection has Left Hand Cellulitis Probable secondary to Dog bite, she denies Drug abuse, asked for Drug screen and follow, continue initially given in ER Vancomycin and Zosyn even is possible to treat the patient with Ampicillin and Sulbactam she has history of MRSA I prefer to continue Vancomycin and Zosyn and follow closely for blood cultures not recommended any procedure by Hand operating room specialist and also by ID specialist continue present care the patient is improving. Blood cultures negative 2. Tobacco dependence states she smokes only three cigarettes daily, denies Alcohol abuse. strongly recommended to stop smoking 3. Depression/Bipolar Disorder/Anxiety disorder on no medication. 4. Substance abuse positive for Amphetamines strongly recommended to stop behavior. 5. Electrolyte derangement placed a note to nurse she is been recommended to get laboratory and not done yet, will place ] new orders today DVT prophylaxis with Heparin Code Status Full Code. Discussed Condition With patient and nurse in the room present Miss Moon, all questions answered to the best of my abilities. consult ID specialist. Discharge Planning Once cleared by specialists. Lito Levi MD Dec 11, 2016 08:27
[2016-12-11] MEDS: SODIUM CHLORIDE 0.9% FLUSH 10 ML FLUSH IV FLUSH SCH ×2 (09:00→20:26)
[2016-12-11] MEDS: DOCUSATE SODIUM 50 MG/SENNA 8.6 MG TAB PO SCH ×2 (09:14→20:26)
[2016-12-11] MEDS: ENOXAPARIN SODIUM 40 MG/0.4 ML SYRINGE SQ SCH (09:15)
[2016-12-11 11:07] LABS: AUTOMATED NEUTROPHIL # 3.8 TH/MM3 (1.8-7.7); BASOPHIL % 0.4 % (0.0-2.0); EOSINOPHIL # 0.2 TH/MM3 (0-0.4); EOSINOPHIL % 2.7 % (0.0-4.0); HEMATOCRIT 30.4 % (35.0-46.0); HEMO FLAGS DIFF FINAL; LYMPH % 32.7 % (9.0-44.0); LYMPHOCYTE # 2.2 TH/MM3 (1.0-4.8); MEAN CELL VOLUME 95.8 FL (80.0-100.0); MEAN CORPUSCULAR HEMOGLOBIN 32.1 PG (27.0-34.0); MEAN CORPUSCULAR HGB CONC 33.5 % (32.0-36.0); MONO % 6.7 % (0.0-8.0); NEUT % 57.5 % (16.0-70.0); PLATELET COUNT 212 TH/MM3 (150-450); RED BLOOD COUNT 3.17 MIL/MM3 (4.00-5.30); RED CELL DISTRIBUTION WIDTH 13.1 % (11.6-17.2); WHITE BLOOD COUNT 6.7 TH/MM3 (4.0-11.0)
[2016-12-11 11:33] LABS: ALKALINE PHOSPHATASE 60 U/L (45-117); ALT (GPT) 26 U/L (10-53); ANION GAP 7 MEQ/L (5-15); AST (GOT) 19 U/L (15-37); BLOOD UREA NITROGEN 4 MG/DL (7-18); CHLORIDE 105 MEQ/L (98-107); GLOMERULAR FILTRATION RATE 146 ML/MIN (>89); POTASSIUM 3.7 MEQ/L (3.5-5.1); SODIUM (NA) 137 MEQ/L (136-145); TOTAL BILIRUBIN ADULT 0.2 MG/DL (0.2-1.0)
--- NOTE | 2016-12-11 12:56 | HHI.PR ---
Subjective Remarks pt reports significant improvement in her left hand states the IV is working properly and she is comfortable Objective Vital Signs Date Time Temp Pulse Resp B/P (MAP) Pulse Ox O2 Delivery O2 Flow Rate FiO2 12/11/16 12:00 97.1 88 16 114/81 (92) 97 12/11/16 09:23 72 12/11/16 08:00 97.0 74 18 102/62 (75) 98 12/11/16 05:54 17 12/11/16 04:00 96.7 74 18 102/57 (72) 97 12/11/16 00:00 96.8 66 18 104/58 (73) 97 12/10/16 21:00 87 12/10/16 20:00 97.8 80 20 115/56 (75) 98 12/10/16 16:00 98.0 71 16 111/72 (85) 98 I/O 12/10/16 12/10/16 12/10/16 12/11/16 12/11/16 12/11/16 07:00 15:00 23:00 07:00 15:00 23:00 Intake Total 1290 ml 50 ml 1732.5 ml 1842.5 ml 450 ml Balance 1290 ml 50 ml 1732.5 ml 1842.5 ml 450 ml Intake Oral 240 ml 420 ml 480 ml IV Total 1050 ml 50 ml 1312.5 ml 1362.5 ml 450 ml # Voids 2 3 2 # Bowel Movements 0 0 Result Diagram: 12/11/16 1050 12/11/16 1050 Procedures None Objective Remarks Examination left hand wrist and forearm reveals markedly decreased erythema. The hand is minimally swollen; no induration no fluctuance no fluid collections; neurovascularly intact throughout she has full active range of motion the hand performed in every other surface are soft She is awake alert and oriented 3 She is pleasant She's lying comfortably in bed Assessment and Plan Problem List: (1) Cellulitis ICD Codes: L03.90 - Cellulitis, unspecified Status: Acute Plan: surgical treatment is not indicated continue IV abx continue strict elevation change to PO abx when erythema or edema disappears Misha Leon III, MD Dec 11, 2016 12:56
--- NOTE | 2016-12-11 17:03 | HHI.IDPN ---
Subjective Subjective Remarks L hand swelling, pain - better afebrile WBC down to 6 K BC negative @ 2 days Antibiotics [facility] Allergies: Coded Allergies: latex (Unverified Allergy, Severe, Swelling, 12/09/16) adhesive (Unverified Allergy, Mild, RASH, 12/09/16) Objective . Vital Signs Date Time Temp Pulse Resp B/P (MAP) Pulse Ox O2 Delivery O2 Flow Rate FiO2 12/11/16 16:00 97.4 76 16 118/68 (85) 95 12/11/16 12:00 97.1 88 16 114/81 (92) 97 12/11/16 09:23 72 12/11/16 08:00 97.0 74 18 102/62 (75) 98 12/11/16 05:54 17 12/11/16 04:00 96.7 74 18 102/57 (72) 97 12/11/16 00:00 96.8 66 18 104/58 (73) 97 12/10/16 21:00 87 12/10/16 20:00 97.8 80 20 115/56 (75) 98 12/11/16 12/11/16 12/12/16 14:59 22:59 06:59 Intake Total 1200 ml Balance 1200 ml IV Total 1200 ml . Laboratory Tests Test 12/11/16 10:50 White Blood Count 6.7 TH/MM3 Red Blood Count 3.17 MIL/MM3 Hemoglobin 10.2 GM/DL Hematocrit 30.4 % Mean Corpuscular Volume 95.8 FL Mean Corpuscular Hemoglobin 32.1 PG Mean Corpuscular Hemoglobin Concent 33.5 % Red Cell Distribution Width 13.1 % Platelet Count 212 TH/MM3 Mean Platelet Volume 8.2 FL Neutrophils (%) (Auto) 57.5 % Lymphocytes (%) (Auto) 32.7 % Monocytes (%) (Auto) 6.7 % Eosinophils (%) (Auto) 2.7 % Basophils (%) (Auto) 0.4 % Neutrophils # (Auto) 3.8 TH/MM3 Lymphocytes # (Auto) 2.2 TH/MM3 Monocytes # (Auto) 0.4 TH/MM3 Eosinophils # (Auto) 0.2 TH/MM3 Basophils # (Auto) 0.0 TH/MM3 CBC Comment DIFF FINAL Differential Comment Laboratory Tests Test 12/11/16 10:50 Blood Urea Nitrogen 4 MG/DL Creatinine 0.50 MG/DL Random Glucose 119 MG/DL Total Protein 6.2 GM/DL Albumin 2.6 GM/DL Calcium Level 8.4 MG/DL Alkaline Phosphatase 60 U/L Aspartate Amino Transf (AST/SGOT) 19 U/L Alanine Aminotransferase (ALT/SGPT) 26 U/L Total Bilirubin 0.2 MG/DL Sodium Level 137 MEQ/L Potassium Level 3.7 MEQ/L Chloride Level 105 MEQ/L Carbon Dioxide Level 25.0 MEQ/L Anion Gap 7 MEQ/L Estimat Glomerular Filtration Rate 146 ML/MIN Microbiology Date/Time Source Procedure Growth Status 12/09/16 04:50 Blood Peripheral Aerobic Blood Culture - Preliminary NO GROWTH IN 2 DAYS Resulted 12/09/16 04:50 Blood Peripheral Anaerobic Blood Culture - Preliminary NO GROWTH IN 2 DAYS Resulted 12/09/16 04:35 Blood Peripheral Aerobic Blood Culture - Preliminary NO GROWTH IN 2 DAYS Resulted 12/09/16 04:35 Blood Peripheral Anaerobic Blood Culture - Preliminary NO GROWTH IN 2 DAYS Resulted Physical Exam CONSTITUTIONAL/GENERAL: This is an adequately nourished patient, in no apparent distress. TUBES/LINES/DRAINS: SKIN: No jaundice, rashes, or lesions. Skin temperature appropriate. Not diaphoretic. no needle tracks CARDIOVASCULAR: Regular rate and rhythm without murmurs, gallops, or rubs. RESPIRATORY/CHEST: Symmetric, unlabored respirations. Clear to auscultation. GASTROINTESTINAL: Abdomen soft, non-tender, nondistended. Bowel sounds present. MUSCULOSKELETAL: L hand with markedly improved edema , erythema and tenderness No crepitus or fluctuance no ascending lymphaginitis or axillae lymphadenopathy LYMPHATICS: No palpable cervical or supraclavicular adenopathy. NEUROLOGICAL: Awake and alert. Motor and sensory grossly within normal limits. Follows commands. Cognitively sharp. Moves all extremities. PSYCHIATRIC:calm, cooperative Assessment & Plan Remarks L hand skin and soft tissue infection following a dog bite, improving on empiric abx H/o IVDU denies current use cont broad spectrum abx (zosyn, vanco) fu clinically if cont to improve and blood clx remain negative anticipate ecventual transition to oral abx (clindamycin + levaquine) Valeria Bartlett MD Dec 11, 2016 17:03
[2016-12-12] MEDS: SODIUM CHLOR 0.9% 1000 ML INJ 1,000 ML IV SCH ×4 (01:34→19:59)
[2016-12-12 04:00] VITALS: BP 127/76; PULSE 72; RESP 16; TEMP 98.1; O2SAT 97
[2016-12-12] MEDS: PIPERACIL-TAZO 3.375 GM PREMIX 50 ML IV SCH ×3 (04:41→16:57)
[2016-12-12] MEDS ORDERED: PHARMACY ORDERED LAB ONE (04:45)
[2016-12-12 05:17] LABS: VANCOMYCIN TROUGH 6.1 MCG/ML (5.0-10.0)
[2016-12-12] MEDS: VANCOMYCIN INJ 1,250 MG in SODIUM CHLOR 0.9% 250 ML INJ 250 ML IV SCH (05:17)
[2016-12-12 08:00] VITALS: BP 117/79; PULSE 72; RESP 20; TEMP 96.9; O2SAT 97
--- NOTE | 2016-12-12 08:34 | HHI.PR ---
Subjective Remarks 31-year-old female patient presents to the ER today, states that her dog had gotten into a fight with her neighbors dog and she was been a few days ago in the left fifth digit, and since then has started having increased left hand swelling, streaking, pain, and states that she has been running subjective fevers. She is here for further evaluation. She states that the dog from her neighbor was vaccinated. She denies any IV drug use. 12/10: Seen by Hand surgery recommended to continue her antibiotics, also not recommended any procedure the patient states her antibiotics are not working and refused to get them this morning, also asked for PICC line IR was consulted to evaluate her Right Jugular peripheral line, will get ID specialist consult. recommended to get Urine for Drug screen and also as per nurse recommendations wants STD evaluation. 12/11: Seen in her bedroom in the presence at all times while I was in the room of nurse Miss Moon, patient stable improving Erythema and edema, ID specialist assistance and Hand portfolio specialist Assistance Highly appreciated. 12/12: Seen in her bedroom in the presence at all times of nurse Miss Flower no new issues, no nausea, vomit or diarrhea. improving fast. Objective Vital Signs Date Time Temp Pulse Resp B/P (MAP) Pulse Ox O2 Delivery O2 Flow Rate FiO2 12/12/16 04:00 98.1 72 16 127/76 (93) 97 12/12/16 03:52 17 12/11/16 20:04 82 12/11/16 20:00 97.5 87 20 101/52 (68) 97 12/11/16 16:00 97.4 76 16 118/68 (85) 95 12/11/16 12:00 97.1 88 16 114/81 (92) 97 12/11/16 09:23 72 I/O 12/11/16 12/11/16 12/11/16 12/12/16 12/12/16 12/12/16 06:59 14:59 22:59 06:59 14:59 22:59 Intake Total 1842.5 ml 1200 ml 932.5 ml 1722.5 ml Balance 1842.5 ml 1200 ml 932.5 ml 1722.5 ml Intake Oral 480 ml 620 ml 360 ml IV Total 1362.5 ml 1200 ml 312.5 ml 1362.5 ml # Voids 2 4 2 # Bowel Movements 0 0 0 Result Diagram: 12/11/16 1050 12/12/16 0445 Imaging No new imaging studies. Procedures None Other Results Laboratory Tests Test 12/09/16 04:50 12/10/16 15:00 12/11/16 10:50 12/12/16 04:45 Lactic Acid Level 1.8 mmol/L Urine Opiates Screen NEG Urine Barbiturates Screen NEG Urine Amphetamines Screen POS Urine Benzodiazepines Screen NEG Urine Cocaine Screen NEG Urine Cannabinoids Screen NEG White Blood Count 6.7 TH/MM3 Red Blood Count 3.17 MIL/MM3 Hemoglobin 10.2 GM/DL Hematocrit 30.4 % Mean Corpuscular Volume 95.8 FL Mean Corpuscular Hemoglobin 32.1 PG Mean Corpuscular Hemoglobin Concent 33.5 % Red Cell Distribution Width 13.1 % Platelet Count 212 TH/MM3 Mean Platelet Volume 8.2 FL Neutrophils (%) (Auto) 57.5 % Lymphocytes (%) (Auto) 32.7 % Monocytes (%) (Auto) 6.7 % Eosinophils (%) (Auto) 2.7 % Basophils (%) (Auto) 0.4 % Neutrophils # (Auto) 3.8 TH/MM3 Lymphocytes # (Auto) 2.2 TH/MM3 Monocytes # (Auto) 0.4 TH/MM3 Eosinophils # (Auto) 0.2 TH/MM3 Basophils # (Auto) 0.0 TH/MM3 CBC Comment DIFF FINAL Differential Comment Blood Urea Nitrogen 4 MG/DL Creatinine 0.50 MG/DL 0.43 MG/DL Random Glucose 119 MG/DL Total Protein 6.2 GM/DL Albumin 2.6 GM/DL Calcium Level 8.4 MG/DL Alkaline Phosphatase 60 U/L Aspartate Amino Transf (AST/SGOT) 19 U/L Alanine Aminotransferase (ALT/SGPT) 26 U/L Total Bilirubin 0.2 MG/DL Sodium Level 137 MEQ/L Potassium Level 3.7 MEQ/L Chloride Level 105 MEQ/L Carbon Dioxide Level 25.0 MEQ/L Anion Gap 7 MEQ/L Estimat Glomerular Filtration Rate 174 ML/MIN Vancomycin Level Trough 6.1 MCG/ML Objective Remarks GENERAL: Well-developed, in no acute distress. SKIN: Focused skin assessment warm/dry. HEAD: Atraumatic. Normocephalic. EYES: Pupils equal and round. No scleral icterus. No injection or drainage. ENT: No nasal bleeding or discharge. Mucous membranes pink and moist. NECK: Trachea midline. No JVD. CARDIOVASCULAR: Regular rate and rhythm. No murmur appreciated. RESPIRATORY: No accessory muscle use. Clear to auscultation. Breath sounds equal bilaterally. GASTROINTESTINAL: Abdomen soft, non-tender, nondistended. Hepatic and splenic margins not palpable. MUSCULOSKELETAL: Left hand: There is notable small puncture wound to the MCP of the fifth digit. However, there is no significant erythema in this area. She has a lot of erythema in the dorsum and second through fourth digits with tenderness on palpation of the digits. Painful flexion and extension of the digits. Streaking of the forearm. NEUROLOGICAL: Awake and alert. No obvious cranial nerve deficits. Motor grossly within normal limits. Normal speech. PSYCHIATRIC: Appropriate mood and affect; insight and judgment normal. Medications and IVs Current Medications Medications (Trade) Dose Ordered Sig/Isak Route Start Time Stop Time Status Last Admin Sodium Chloride 1,000 ml @ 150 mls/hr Q6H40M IV 12/09/16 06:00 12/12/16 01:34 (NS Flush) 2 ml UNSCH PRN IV FLUSH 12/09/16 06:00 (NS Flush) 2 ml BID IV FLUSH 12/09/16 09:00 12/10/16 11:17 (Zofran Inj) 4 mg Q6H PRN IVP 12/09/16 06:00 (Tylenol) 650 mg Q6H PRN PO 12/09/16 06:00 (Roxicodone) 10 mg Q4H PRN PO 12/09/16 06:00 12/12/16 02:52 (Roxicodone) 5 mg Q4H PRN PO 12/09/16 06:00 (Emelina-Colace) 1 tab BID PO 12/09/16 09:00 12/11/16 09:14 (Milk Of Magnesia Liq) 30 ml Q12H PRN PO 12/09/16 06:00 (Senokot) 17.2 mg Q12H PRN PO 12/09/16 06:00 (Dulcolax Supp) 10 mg DAILY PRN RECTAL 12/09/16 06:00 (Lactulose Liq) 30 ml DAILY PRN PO 12/09/16 06:00 Piperacillin Sod/ Tazobactam Sod 50 ml @ 100 mls/hr Q6H IV 12/09/16 11:00 12/12/16 04:41 Pharmacy Profile Note 0 ml @ 0 mls/hr UNSCH OTHER 12/09/16 09:00 Vancomycin HCl 1250 mg/Sodium Chloride 262.5 ml @ 250 mls/hr Q12H IV 12/09/16 17:00 12/12/16 05:17 (Lovenox Inj) 40 mg Q24H SQ 12/10/16 11:00 12/11/16 09:15 A/P Assessment and Plan 1. Sepsis the patient has Tachycardia and Leukocytosis and known area of infection has Left Hand Cellulitis Probable secondary to Dog bite, she denies Drug abuse, asked for Drug screen and follow, continue initially given in ER Vancomycin and Zosyn even is possible to treat the patient with Ampicillin and Sulbactam she has history of MRSA I prefer to continue Vancomycin and Zosyn and follow closely for blood cultures not recommended any procedure by Hand portfolio specialist and also by ID specialist continue present care the patient is improving. Blood cultures negative 2. Tobacco dependence states she smokes only three cigarettes daily, denies Alcohol abuse. strongly recommended to stop smoking 3. Depression/Bipolar Disorder/Anxiety disorder on no medication. 4. Substance abuse positive for Amphetamines strongly recommended to stop behavior. 5. Electrolyte derangement replaced. DVT prophylaxis with Heparin Code Status Full Code. Discussed Condition With patient and nurse in the room present Miss Flower, all questions answered to the best of my abilities. Discharge Planning Once cleared by specialists. Lito Levi MD Dec 12, 2016 08:34
[2016-12-12] MEDS: SODIUM CHLORIDE 0.9% FLUSH 10 ML FLUSH IV FLUSH SCH ×2 (08:46→19:59)
[2016-12-12] MEDS: DOCUSATE SODIUM 50 MG/SENNA 8.6 MG TAB PO SCH ×2 (08:47→19:59)
[2016-12-12] MEDS: ENOXAPARIN SODIUM 40 MG/0.4 ML SYRINGE SQ SCH (10:42)
[2016-12-12 12:00] VITALS: BP 120/80; PULSE 81; RESP 19; TEMP 97.2; O2SAT 98
[2016-12-12] MEDS: VANCOMYCIN INJ 2,000 MG in SODIUM CHLORID 0.9% 500 ML INJ 500 ML IV SCH (12:23)
[2016-12-12 13:54] VITALS: PULSE 63
[2016-12-12 16:00] VITALS: BP 102/65; PULSE 74; RESP 19; TEMP 97.4; O2SAT 97
[2016-12-12 20:00] VITALS: BP 107/55; PULSE 85; PULSE 88; RESP 18; TEMP 98; O2SAT 97
[2016-12-13] VITALS: BP 113/72; PULSE 87; RESP 20; TEMP 98.1; O2SAT 96
[2016-12-13] MEDS: VANCOMYCIN INJ 2,000 MG in SODIUM CHLORID 0.9% 500 ML INJ 500 ML IV SCH (00:38)
[2016-12-13] MEDS: PIPERACIL-TAZO 3.375 GM PREMIX 50 ML IV SCH ×3 (04:40→11:00)
[2016-12-13] MEDS: SODIUM CHLOR 0.9% 1000 ML INJ 1,000 ML IV SCH ×2 (04:40→10:54)
[2016-12-13 08:00] VITALS: BP 117/73; PULSE 71; RESP 19; TEMP 96.9; O2SAT 96
[2016-12-13] MEDS: SODIUM CHLORIDE 0.9% FLUSH 10 ML FLUSH IV FLUSH SCH (09:00)
[2016-12-13] MEDS: DOCUSATE SODIUM 50 MG/SENNA 8.6 MG TAB PO SCH (09:00)
--- NOTE | 2016-12-13 10:28 | HHI.PR ---
Subjective Remarks 31-year-old female patient presents to the ER today, states that her dog had gotten into a fight with her neighbors dog and she was been a few days ago in the left fifth digit, and since then has started having increased left hand swelling, streaking, pain, and states that she has been running subjective fevers. She is here for further evaluation. She states that the dog from her neighbor was vaccinated. She denies any IV drug use. 12/10: Seen by Hand surgery recommended to continue her antibiotics, also not recommended any procedure the patient states her antibiotics are not working and refused to get them this morning, also asked for PICC line IR was consulted to evaluate her Right Jugular peripheral line, will get ID specialist consult. recommended to get Urine for Drug screen and also as per nurse recommendations wants STD evaluation. 12/11: Seen in her bedroom in the presence at all times while I was in the room of nurse Miss Moon, patient stable improving Erythema and edema, ID specialist assistance and Hand environmental communications specialist Assistance Highly appreciated. 12/12: Seen in her bedroom in the presence at all times of nurse Miss Flower no new issues, improving fast 12/13: Seen in the room in the presence of nurse Miss Scott appreciated, the patient is been non compliant with her care, but improving, no nausea, vomit or diarrhea. Objective Vital Signs Date Time Temp Pulse Resp B/P (MAP) Pulse Ox O2 Delivery O2 Flow Rate FiO2 12/13/16 08:00 96.9 71 19 117/73 (88) 96 12/13/16 00:00 98.1 87 20 113/72 (86) 96 12/12/16 20:00 88 12/12/16 20:00 98.0 85 18 107/55 (72) 97 12/12/16 16:00 97.4 74 19 102/65 (77) 97 12/12/16 13:54 63 12/12/16 12:00 97.2 81 19 120/80 (93) 98 I/O 12/12/16 12/12/16 12/12/16 12/13/16 12/13/16 12/13/16 07:00 15:00 23:00 07:00 15:00 23:00 Intake Total 1722.5 ml 170 ml 3504 ml 360 ml 120 ml Output Total 950 ml Balance 1722.5 ml 170 ml 2554 ml 360 ml 120 ml Intake Oral 360 ml 120 ml 1200 ml 360 ml 120 ml IV Total 1362.5 ml 50 ml 2304 ml Output Urine Total 950 ml # Voids 2 2 # Bowel Movements 0 0 0 Result Diagram: 12/11/16 1050 12/12/16 0445 Imaging No new imaging studies. Procedures None Other Results Laboratory Tests Test 12/09/16 04:50 12/10/16 15:00 12/11/16 10:50 12/12/16 04:45 Lactic Acid Level 1.8 mmol/L Urine Opiates Screen NEG Urine Barbiturates Screen NEG Urine Amphetamines Screen POS Urine Benzodiazepines Screen NEG Urine Cocaine Screen NEG Urine Cannabinoids Screen NEG White Blood Count 6.7 TH/MM3 Red Blood Count 3.17 MIL/MM3 Hemoglobin 10.2 GM/DL Hematocrit 30.4 % Mean Corpuscular Volume 95.8 FL Mean Corpuscular Hemoglobin 32.1 PG Mean Corpuscular Hemoglobin Concent 33.5 % Red Cell Distribution Width 13.1 % Platelet Count 212 TH/MM3 Mean Platelet Volume 8.2 FL Neutrophils (%) (Auto) 57.5 % Lymphocytes (%) (Auto) 32.7 % Monocytes (%) (Auto) 6.7 % Eosinophils (%) (Auto) 2.7 % Basophils (%) (Auto) 0.4 % Neutrophils # (Auto) 3.8 TH/MM3 Lymphocytes # (Auto) 2.2 TH/MM3 Monocytes # (Auto) 0.4 TH/MM3 Eosinophils # (Auto) 0.2 TH/MM3 Basophils # (Auto) 0.0 TH/MM3 CBC Comment DIFF FINAL Differential Comment Blood Urea Nitrogen 4 MG/DL Creatinine 0.50 MG/DL 0.43 MG/DL Random Glucose 119 MG/DL Total Protein 6.2 GM/DL Albumin 2.6 GM/DL Calcium Level 8.4 MG/DL Alkaline Phosphatase 60 U/L Aspartate Amino Transf (AST/SGOT) 19 U/L Alanine Aminotransferase (ALT/SGPT) 26 U/L Total Bilirubin 0.2 MG/DL Sodium Level 137 MEQ/L Potassium Level 3.7 MEQ/L Chloride Level 105 MEQ/L Carbon Dioxide Level 25.0 MEQ/L Anion Gap 7 MEQ/L Estimat Glomerular Filtration Rate 174 ML/MIN Vancomycin Level Trough 6.1 MCG/ML Objective Remarks GENERAL: Well-developed, in no acute distress. SKIN: Focused skin assessment warm/dry. HEAD: Atraumatic. Normocephalic. EYES: Pupils equal and round. No scleral icterus. No injection or drainage. ENT: No nasal bleeding or discharge. Mucous membranes pink and moist. NECK: Trachea midline. No JVD. CARDIOVASCULAR: Regular rate and rhythm. No murmur appreciated. RESPIRATORY: No accessory muscle use. Clear to auscultation. Breath sounds equal bilaterally. GASTROINTESTINAL: Abdomen soft, non-tender, nondistended. Hepatic and splenic margins not palpable. MUSCULOSKELETAL: Left hand: There is notable small puncture wound to the MCP of the fifth digit. However, there is no significant erythema in this area. She has a lot of erythema in the dorsum and second through fourth digits with tenderness on palpation of the digits. Painful flexion and extension of the digits. Streaking of the forearm. NEUROLOGICAL: Awake and alert. No obvious cranial nerve deficits. Motor grossly within normal limits. Normal speech. PSYCHIATRIC: Appropriate mood and affect; insight and judgment normal. Medications and IVs Current Medications Medications (Trade) Dose Ordered Sig/Isak Route Start Time Stop Time Status Last Admin Sodium Chloride 1,000 ml @ 150 mls/hr Q6H40M IV 12/09/16 06:00 12/13/16 04:40 (NS Flush) 2 ml UNSCH PRN IV FLUSH 12/09/16 06:00 (NS Flush) 2 ml BID IV FLUSH 12/09/16 09:00 12/10/16 11:17 (Zofran Inj) 4 mg Q6H PRN IVP 12/09/16 06:00 (Tylenol) 650 mg Q6H PRN PO 12/09/16 06:00 (Roxicodone) 10 mg Q4H PRN PO 12/09/16 06:00 12/13/16 09:24 (Roxicodone) 5 mg Q4H PRN PO 12/09/16 06:00 (Emelina-Colace) 1 tab BID PO 12/09/16 09:00 12/11/16 09:14 (Milk Of Magnesia Liq) 30 ml Q12H PRN PO 12/09/16 06:00 (Senokot) 17.2 mg Q12H PRN PO 12/09/16 06:00 (Dulcolax Supp) 10 mg DAILY PRN RECTAL 12/09/16 06:00 (Lactulose Liq) 30 ml DAILY PRN PO 12/09/16 06:00 Piperacillin Sod/ Tazobactam Sod 50 ml @ 100 mls/hr Q6H IV 12/09/16 11:00 12/13/16 04:40 Pharmacy Profile Note 0 ml @ 0 mls/hr UNSCH OTHER 12/09/16 09:00 (Lovenox Inj) 40 mg Q24H SQ 12/10/16 11:00 12/12/16 10:42 Vancomycin HCl 2000 mg/Sodium Chloride 520 ml @ 250 mls/hr Q12H IV 12/12/16 12:00 12/13/16 00:38 Miscellaneous Information SPECIFIC LAB TO BE DRAWN:VANCOMYCIN TROUGH DATE TO... ONCE ONCE .XX 12/14/16 11:45 12/14/16 11:46 A/P Assessment and Plan 1. Sepsis the patient has Tachycardia and Leukocytosis and known area of infection has Left Hand Cellulitis Probable secondary to Dog bite, she denies Drug abuse, asked for Drug screen and follow, continue initially given in ER Vancomycin and Zosyn even is possible to treat the patient with Ampicillin and Sulbactam she has history of MRSA I prefer to continue Vancomycin and Zosyn and follow closely for blood cultures not recommended any procedure by Hand environmental communications specialist and also by ID specialist continue present care the patient is improving. Blood cultures negative, NO BSI, may get by mouth antibiotics and discharge later if okay with ID specialist. 2. Tobacco dependence states she smokes only three cigarettes daily, denies Alcohol abuse. strongly recommended to stop smoking 3. Depression/Bipolar Disorder/Anxiety disorder on no medication. 4. Substance abuse positive for Amphetamines strongly recommended to stop behavior. 5. Electrolyte derangement replaced. DVT prophylaxis with Heparin Code Status Full Code. Discussed Condition With patient and nurse in the room present Miss Flower, all questions answered to the best of my abilities. Discharge Planning Awaiting final by ID specialist for discharge. Lito Levi MD Dec 13, 2016 10:28
[2016-12-13] MEDS: ENOXAPARIN SODIUM 40 MG/0.4 ML SYRINGE SQ SCH (11:00)
[2016-12-13 12:00] VITALS: BP 120/78; PULSE 79; RESP 20; TEMP 96.9; O2SAT 98
--- NOTE | 2016-12-13 13:47 | HHI.IDPN ---
Subjective Subjective Remarks L hand swelling, pain resolving afebrile BC negative Antibiotics [facility] Allergies: Coded Allergies: latex (Unverified Allergy, Severe, Swelling, 12/09/16) adhesive (Unverified Allergy, Mild, RASH, 12/09/16) Objective . Vital Signs Date Time Temp Pulse Resp B/P (MAP) Pulse Ox O2 Delivery O2 Flow Rate FiO2 12/13/16 12:00 96.9 79 20 120/78 (92) 98 12/13/16 08:00 96.9 71 19 117/73 (88) 96 12/13/16 00:00 98.1 87 20 113/72 (86) 96 12/12/16 20:00 88 12/12/16 20:00 98.0 85 18 107/55 (72) 97 12/12/16 16:00 97.4 74 19 102/65 (77) 97 12/12/16 13:54 63 12/13/16 12/13/16 12/14/16 14:59 22:59 06:59 Intake Total 120 ml Balance 120 ml Intake Oral 120 ml . Laboratory Tests Test 12/12/16 04:45 Creatinine 0.43 MG/DL Estimat Glomerular Filtration Rate 174 ML/MIN Physical Exam CONSTITUTIONAL/GENERAL: This is an adequately nourished patient, in no apparent distress. TUBES/LINES/DRAINS: SKIN: No jaundice, rashes, or lesions. MUSCULOSKELETAL: L hand with nearly complete resolution of edema , erythema and tenderness Assessment & Plan Remarks L hand skin and soft tissue infection following a dog bite, improving on empiric abx H/o IVDU denies current use Dc IV abx OK to dc home on clindamycin, levaquine x Valeria Bartlett MD Dec 13, 2016 13:47
[2016-12-13] MEDS ORDERED: CLIN1CAP6 PO (13:55)
[2016-12-13] MEDS ORDERED: LEVA750T9 PO (13:55)
[2016-12-13] MEDS ORDERED: OXYC-392 PO (15:20)
--- NOTE | 2016-12-13 15:25 | HHI.DS ---
Discharge Summary Admission Date Dec 09, 2016 at 05:58 Discharge Date: Dec 13, 2016 Admitting Diagnosis left hand cellulitis/sepsis (1) Cellulitis of left hand ICD Code: L03.114 - Cellulitis of left upper limb Diagnosis: Principal Status: Acute Procedures None Brief History - From Admission 31-year-old female patient presents to the ER today, states that her dog had gotten into a fight with her neighbors dog and she was been a few days ago in the left fifth digit, and since then has started having increased left hand swelling, streaking, pain, and states that she has been running subjective fevers. She is here for further evaluation. She states that the dog from her neighbor was vaccinated. She denies any IV drug use. Seen in ER stable sleeping comfortable. Poor historian. CBC/BMP: 12/11/16 1050 12/12/16 0445 Significant Findings Laboratory Tests Test 12/11/16 10:50 12/12/16 04:45 Red Blood Count 3.17 MIL/MM3 (4.00-5.30) Hemoglobin 10.2 GM/DL (11.6-15.3) Hematocrit 30.4 % (35.0-46.0) Blood Urea Nitrogen 4 MG/DL (7-18) Random Glucose 119 MG/DL (74-106) Total Protein 6.2 GM/DL (6.4-8.2) Albumin 2.6 GM/DL (3.4-5.0) Calcium Level 8.4 MG/DL (8.5-10.1) Creatinine 0.43 MG/DL (0.50-1.00) Imaging No Imaging studies performed. PE at Discharge GENERAL: Well-developed, in no acute distress. SKIN: Focused skin assessment warm/dry. HEAD: Atraumatic. Normocephalic. EYES: Pupils equal and round. No scleral icterus. No injection or drainage. ENT: No nasal bleeding or discharge. Mucous membranes pink and moist. NECK: Trachea midline. No JVD. CARDIOVASCULAR: Regular rate and rhythm. No murmur appreciated. RESPIRATORY: No accessory muscle use. Clear to auscultation. Breath sounds equal bilaterally. GASTROINTESTINAL: Abdomen soft, non-tender, nondistended. Hepatic and splenic margins not palpable. MUSCULOSKELETAL: Left hand: There is notable small puncture wound to the MCP of the fifth digit. However, there is no significant erythema in this area. She has a lot of erythema in the dorsum and second through fourth digits with tenderness on palpation of the digits. Painful flexion and extension of the digits. Streaking of the forearm. NEUROLOGICAL: Awake and alert. No obvious cranial nerve deficits. Motor grossly within normal limits. Normal speech. PSYCHIATRIC: Appropriate mood and affect; insight and judgment normal. Hospital Course 31-year-old female patient presents to the ER today, states that her dog had gotten into a fight with her neighbors dog and she was been a few days ago in the left fifth digit, and since then has started having increased left hand swelling, streaking, pain, and states that she has been running subjective fevers. She is here for further evaluation. She states that the dog from her neighbor was vaccinated. She denies any IV drug use. 12/10: Seen by Hand surgery recommended to continue her antibiotics, also not recommended any procedure the patient states her antibiotics are not working and refused to get them this morning, also asked for PICC line IR was consulted to evaluate her Right Jugular peripheral line, will get ID specialist consult. recommended to get Urine for Drug screen and also as per nurse recommendations wants STD evaluation. 12/11: Seen in her bedroom in the presence at all times while I was in the room of nurse Miss Moon, patient stable improving Erythema and edema, ID specialist assistance and Hand deaf/hard of hearing specialist Assistance Highly appreciated. 12/12: Seen in her bedroom in the presence at all times of nurse Miss Flower no new issues, improving fast 12/13: Seen in the room in the presence of nurse Miss Scott appreciated, the patient is been non compliant with her care, but improving, no nausea, vomit or diarrhea. Assessment and Plan 1. Sepsis the patient has Tachycardia and Leukocytosis and known area of infection has Left Hand Cellulitis Probable secondary to Dog bite, she denies Drug abuse, asked for Drug screen and follow, continue initially given in ER Vancomycin and Zosyn even is possible to treat the patient with Ampicillin and Sulbactam she has history of MRSA I prefer to continue Vancomycin and Zosyn and follow closely for blood cultures not recommended any procedure by Hand deaf/hard of hearing specialist and also by ID specialist continue present care the patient is improving. Blood cultures negative, NO BSI, okay to discharge on Levaquin and Clindamycin for five more days. follow up as outpatient with Hand deaf/hard of hearing specialist doctor Misha Leon III 2. Tobacco dependence states she smokes only three cigarettes daily, denies Alcohol abuse. strongly recommended to stop smoking 3. Depression/Bipolar Disorder/Anxiety disorder on no medication. 4. Substance abuse positive for Amphetamines strongly recommended to stop behavior. 5. Electrolyte derangement replaced. DVT prophylaxis with Heparin Code Status Full Code. Discussed Condition With patient and nurse in the room present Miss Flower, all questions answered to the best of my abilities. Discharge Planning Discharge now. Pt Condition on Discharge: Good Discharge Disposition: Discharge Home Discharge Time: <= 30 minutes Discharge Instructions DIET: Follow Instructions for: As Tolerated, No Restrictions Activities you can perform: Regular-No Restrictions Lito Levi MD Dec 13, 2016 15:25
[2016-12-13] MEDS ORDERED: LEVOFLOXACIN 750 MG TAB PO SCH (17:00)
[2016-12-13] MEDS ORDERED: CLINDAMYCIN 150 MG CAP PO SCH (18:00)
[2016-12-14] MEDS ORDERED: PHARMACY ORDERED LAB ONE (11:45)
== END 2016-12-13 18:52 | disposition home or self-care (01) | DRG 872 ==
LOC: NED 03:18 → NEDA 05:58 → N07B 09:09
PROVIDERS: ADMIT Internal Medicine; ATTEND Internal Medicine
DX: A41.9 Sepsis, unspecified organism (principal); L03.114 Cellulitis of left upper limb; K21.9 Gastro-esophageal reflux disease without esophagitis; F10.10 Alcohol abuse, uncomplicated; F31.9 Bipolar disorder, unspecified; F41.9 Anxiety disorder, unspecified; F90.9 Attention-deficit hyperactivity disorder, unspecified type; F17.210 Nicotine dependence, cigarettes, uncomplicated; S61.452A Open bite of left hand, initial encounter; W54.0XXA Bitten by dog, initial encounter; Z86.14 Personal history of Methicillin resistant Staphylococcus aureus infection; Z91.19 Patient's noncompliance with other medical treatment and regimen; Y92.9 Unspecified place or not applicable; R00.0 Tachycardia, unspecified
CPT/HCPCS: 80053; 80202; 80307; 82565; 83605; 85025; 87040; 96365; 96367; J1650; J2543; J3370; J7030; J7040; J7050

== ENCOUNTER 2017-07-16 05:46 | Emergency (ER) | payer OTHER ==
[~2017-07-16 05:46] MED LIST changes: -BACT800T5 PO; -CEPH-460 PO; +CLIN300C5 PO; +LEVA750T9 PO; +OXYC-392 PO
[2017-07-16 05:53] VITALS: BP 114/69; PULSE 84; RESP 20; TEMP 97.5; O2SAT 99
[2017-07-16] MEDS ORDERED: ceFAZolin 2 GM PREMIX 100 ML IV ONE (06:15)
[2017-07-16] MEDS ORDERED: SODIUM CHLORIDE 0.9% FLUSH 10 ML FLUSH IVF PRN (06:15)
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
[2017-07-16 06:39] VITALS: RESP 20; O2SAT 99
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
--- NOTE | 2017-07-16 07:10 | PD ---
Physical Exam Date Seen by Provider: July 16, 2017 Time Seen by Provider: 07:05 Narrative The patient is a 32-year-old female was initially evaluated by the previous physician, Dr. Bedolla. Please refer to the initial history, physical, diagnostic evaluation, and treatment plan. The patient was signed out at [address] and laceration repair pending. Data Data Last Documented VS Vital Signs Date Time Temp Pulse Resp B/P (MAP) Pulse Ox O2 Delivery O2 Flow Rate FiO2 07/16/17 06:39 99 Room Air 07/16/17 06:39 20 07/16/17 05:56 84 07/16/17 05:53 97.5 114/69 (84) Orders Orders Chest, Single Ap (07/16/17 06:12) Pelvis, Ap Only (Routine) (07/16/17 06:12) Ct Brain W/O Iv Contrast(Rout) (07/16/17 06:12) Ct Cerv Spine W/O Contrast (07/16/17 06:12) Cefazolin 2 Gm Premix (Ancef 2 Gm Premix (07/16/17 06:15) Sodium Chloride 0.9% Flush (Ns Flush) (07/16/17 06:15) Elbow, Complete (4 Vws) (07/16/17 ) Foot, Complete ([id number]) (07/16/17 ) Ankle, Complete ([id number]) (07/16/17 ) Ed Urine Pregnancytest Poc (07/16/17 06:12) Wound Care (07/16/17 06:12) Ice / Cold Pack PRN (07/16/17 06:12) Acetamin-Hydrocod 325-5 Mg ([place] 5-325 (07/16/17 08:45) Ibuprofen (Motrin) (07/16/17 08:45) Sulfamet-Trimeth Ds 800-160 Mg (Bactrim (07/16/17 08:45) Splinting (07/16/17 ) Mandatory Outpatient Referral (07/16/17 08:58) [facility] Medical Record Reviewed: Yes Supervised Visit with NEMO: No Interpretation(s) Last Impressions Pelvis X-Ray 07/16/1712 Signed Impressions: Service Date/Time: Sunday, July 16, 2017 06:39 - CONCLUSION: 1. No acute findings. Intrauterine device present. Rashard Corrales MD Head CT 07/16/1712 Signed Impressions: Service Date/Time: Sunday, July 16, 2017 07:12 - CONCLUSION: No acute intracranial disease. Maurizio Leggett MD Chest X-Ray 07/16/17611 Signed Impressions: Service Date/Time: Sunday, July 16, 2017 06:32 - CONCLUSION: No acute disease. Rashard Corrales MD Cervical Spine CT 07/16/17611 Signed Impressions: Service Date/Time: Sunday, July 16, 2017 07:12 - CONCLUSION: No fracture or subluxation. Maurizio Leggett MD Foot X-Ray 07/16/17 Signed Impressions: Service Date/Time: Sunday, July 16, 2017 06:44 - CONCLUSION: Normal examination for a patient of this age. Rashard Corrales MD Elbow X-Ray 07/16/17 Signed Impressions: Service Date/Time: Sunday, July 16, 2017 06:36 - CONCLUSION: 1. Small avulsion fracture at the olecranon. Rashard Corrales MD Ankle X-Ray 07/16/17 Signed Impressions: Service Date/Time: Sunday, July 16, 2017 06:42 - CONCLUSION: 1. No acute findings. Rashard Corrales MD Differential Diagnosis Differential diagnosis includes fracture, dislocation, laceration, contusion, multisystem trauma, abrasion. Narrative Course The patient was initially evaluated by the previous physician. Please refer to the initial history, physical, diagnostic evaluation, and treatment modality plan. The patient was signed out at [address] and radiology evaluation pending and subsequent laceration repair of the elbow pending. X-ray of the right foot and ankle were negative, chest x-ray and pelvis x-ray are unremarkable. X-ray of the right elbow reveals avulsion fracture of the olecranon. I went to evaluate the patient's right elbow, she does have an approximate 5-6 cm laceration in transverse position on the posterior aspect of the right elbow. The patient did complain of pain, I offered to place an IV to give her pain control however, she stated "I have no fucking veins you for fucking asshole". I advised the patient that that language was not necessary in the emergency department. I also asked the patient to discontinue the lollipop, as she was advised by the previous physician that she could have no oral intake until we discussed her case with the orthopedic surgeon. A call was placed to the on-call orthopedic surgeon, Dr. Olivares. I discussed the patient with Dr. Elise Alvarez's PA, and after discussion he reviewed the x- rays. He states the laceration can be irrigated thoroughly, sutured, dressings in place, the patient can be placed in a posterior long-arm splint with outpatient follow-up. The patient does have a history of MRSA, therefore, was provided Bactrim orally she would not take an IV. She declined IV medications and IM medications, after discussion it was agreed she would receive Bactrim, ibuprofen, and [place]. The laceration was repaired by the mid-level provider, please refer to the procedure note. Diagnosis Primary Impression: Avulsion fracture Additional Impressions: Laceration of elbow Qualified Codes: S51.011A - Laceration without foreign body of right elbow, initial encounter Right ankle pain Qualified Codes: M25.571 - Pain in right ankle and joints of right foot Abrasions of multiple sites Referrals: John Olivares MD call for appointment Mandatory referral has been placed Patient Instructions: Narcotic given in the ED, General Instructions Additional Instruction: Medications as directed. Follow-up with Dr. Olivares as directed. Ice to the right elbow. Wound care instructions for abrasions. Monitor for signs of infection. Med/Other Pt SpecificInfo: Prescription(s) given Scripts Sulfamethoxazole-Trimethoprim (Bactrim DS) 800-160 Mg Tab 1 TAB PO BID for Infection, #20 TAB 0 Refills Prov: Wilfred Barcenas MD 07/16/17 Ibuprofen (Ibuprofen) 600 Mg Tab 600 MG PO Q6H Y for Pain/Inflammation, #20 TAB 0 Refills Prov: Wilfred Barcenas MD 07/16/17 Hydrocodone-Acetaminophen ([place]) 5 Mg-325 Mg Tab 1 TAB PO Q6H Y for PAIN, #12 TAB 0 Refills Prov: Wilfred Barcenas MD 07/16/17 Disposition: 01 DISCHARGE HOME Condition: Stable Wilfred Barcenas MD July 16, 2017 07:10
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
[2017-07-16] MEDS ORDERED: SULFAMETHOXAZOLE-TRIMETHOPRIM DS 800-160 MG TAB PO ONE (08:45)
[2017-07-16] MEDS ORDERED: ACETAMINOPHEN/HYDROcodone 325 MG/5 MG TAB PO ONE (08:45)
[2017-07-16] MEDS ORDERED: IBUPROFEN 600 MG TAB PO ONE (08:45)
[2017-07-16] MEDS ORDERED: IBUP-232 PO (09:09)
[2017-07-16] MEDS ORDERED: NORC5TAB PO (09:09)
[2017-07-16] MEDS ORDERED: BACT800T5 PO (09:09)
[2017-07-16] MEDS ORDERED: LIDOCAINE 1%/EPINEPHrine 1:100,000 SOLN 20 ML VIAL INFIL ONE (09:15)
--- NOTE | 2017-07-16 09:43 | PD ---
Physical Exam Narrative I was asked by Dr. Barcenas to repair patient's laceration. Please see his documentation for full H&P. Data Data Last Documented VS Vital Signs Date Time Temp Pulse Resp B/P (MAP) Pulse Ox O2 Delivery O2 Flow Rate FiO2 07/16/17 06:39 99 Room Air 07/16/17 06:39 20 07/16/17 05:56 84 07/16/17 05:53 97.5 114/69 (84) Orders Orders Chest, Single Ap (07/16/17 06:12) Pelvis, Ap Only (Routine) (07/16/17 06:12) Ct Brain W/O Iv Contrast(Rout) (07/16/17 06:12) Ct Cerv Spine W/O Contrast (07/16/17 06:12) Cefazolin 2 Gm Premix (Ancef 2 Gm Premix (07/16/17 06:15) Sodium Chloride 0.9% Flush (Ns Flush) (07/16/17 06:15) Elbow, Complete (4 Vws) (07/16/17 ) Foot, Complete (Qwh0ipa) (07/16/17 ) Ankle, Complete (Psm3thr) (07/16/17 ) Ed Urine Pregnancytest Poc (07/16/17 06:12) Wound Care (07/16/17 06:12) Ice / Cold Pack PRN (07/16/17 06:12) Acetamin-Hydrocod 325-5 Mg ([place] 5-325 (07/16/17 08:45) Ibuprofen (Motrin) (07/16/17 08:45) Sulfamet-Trimeth Ds 800-160 Mg (Bactrim (07/16/17 08:45) Splinting (07/16/17 ) Mandatory Outpatient Referral (07/16/17 08:58) Lidocai-Epi 1%-1:100,000 Inj (Xylocaine- (07/16/17 09:15) MDM Supervised Visit with NEMO: No Procedures Procedure Narrative LACERATION REPAIR LOCATION: Right elbow LENGTH: Proximally 4-1/2 cm in total length irregular shaped NUMBER OF STITCHES/BLUE: 5 combination of simple interrupted and simple mattress REPAIR: Verbal consent was obtained. The area of the laceration was cleaned and prepped. The laceration was infiltrated with lidocaine with epi. The wound was copiously irrigated with 2 L of normal saline and explored without evidence of foreign body, bony involvement, ligament injury, tendon injury, or neurovascular injury. The wound was closed using 4-0 Ethilon. This was a single layer repair. A sterile dressing was applied by nurse. The patient was advised to keep the affected area as clean and dry as possible using soap and water. There were no complications. Patient tolerated the procedure well. Diagnosis Primary Impression: Avulsion fracture Additional Impressions: Abrasions of multiple sites Right ankle pain Qualified Codes: M25.571 - Pain in right ankle and joints of right foot Laceration of elbow Qualified Codes: S51.011A - Laceration without foreign body of right elbow, initial encounter Referrals: John Olivares MD call for appointment Mandatory referral has been placed Patient Instructions: General Instructions, Narcotic given in the ED Additional Instruction: Medications as directed. Follow-up with Dr. Olivares as directed. Ice to the right elbow. Wound care instructions for abrasions. Monitor for signs of infection. Scripts Sulfamethoxazole-Trimethoprim (Bactrim DS) 800-160 Mg Tab 1 TAB PO BID for Infection, #20 TAB 0 Refills Prov: Wilfred Barcenas MD 07/16/17 Ibuprofen (Ibuprofen) 600 Mg Tab 600 MG PO Q6H Y for Pain/Inflammation, #20 TAB 0 Refills Prov: Wilfred Barcenas MD 07/16/17 Hydrocodone-Acetaminophen ([place]) 5 Mg-325 Mg Tab 1 TAB PO Q6H Y for PAIN, #12 TAB 0 Refills Prov: Wilfred Barcenas MD 07/16/17 Disposition: 01 DISCHARGE HOME Condition: Stable Francisco Son July 16, 2017 09:43
== END 2017-07-16 11:15 | disposition home or self-care (01) ==
LOC: NEPC 05:46
DX: S52.021A Displaced fracture of olecranon process without intraarticular extension of right ulna, initial encounter for closed fracture (principal); S90.811A Abrasion, right foot, initial encounter; M25.571 Pain in right ankle and joints of right foot; S51.011A Laceration without foreign body of right elbow, initial encounter; V13.4XXA Pedal cycle driver injured in collision with car, pick-up truck or van in traffic accident, initial encounter; Y93.55 Activity, bike riding; Y92.488 Other paved roadways as the place of occurrence of the external cause
CPT/HCPCS: 12002; 29105; 70450; 71045; 72125; 72170; 73080; 73610; 73630